=== PATIENT | female | born 1965 | race African-American/Black ===

== ENCOUNTER → 2021-04-12 | Outpatient (CLI) | payer OTHER ==
--- NOTE | 2021-04-22 16:50 | RAD ---
Bilateral digital screening mammogram (2-D): Reason for examination: Routine screening. Comparison is made to previous study dated 04/21/2016. Interpretation was made with the benefit of CAD. Findings: Breast density: Category B. There are scattered areas of fibroglandular density.. There are no suspicious masses, malignant appearing calcifications or architectural distortions. IMPRESSION: No evidence of malignancy. Assessment: BI-RADS Category 1: Negative. Recommendation: Routine screening mammograms. This patient's information has been entered into a reminder system for the patient to be notified wit h the results of her examination and a target date for the next mammogram. Electronically signed by: Raya Marshall MD (04/22/2021 4:48 PM) [id number]
== END ==
LOC: MAMMO 12:50
PROVIDERS: ATTEND Nurse Practitioner Primary Care
DX: Z12.31 Encounter for screening mammogram for malignant neoplasm of breast (principal)
CPT/HCPCS: 77067